=== PATIENT | female | born 1995 | race Caucasian/White ===

== ENCOUNTER 2017-07-31 18:37 | Inpatient (IN) | payer OTHER ==
[~2017-07-31] VITALS: Ht 162.6 cm; Wt 86.2 kg
[2017-07-31 18:46] VITALS: BP 122/81
[2017-07-31 19:13] LABS: HEMATOCRIT 45.2 % (37.0-47.0); HEMOGLOBIN 15.2 gm/dL (12.0-15.0); MCH 31.6 pg (26.0-34.0); MCHC 33.7 g/dL (28.0-37.0); MCV 93.7 fL (80.0-100.0); MPV 7.3 fl. (7.2-11.1); NUCLEATED RBCS 0 /100WBC; PLATELET COUNT* 370 thou/uL (150-400); RBC 4.83 mil/uL (4.20-5.00); RDW-CV 12.8 % (10.5-14.5); WBC 11.7 thou/uL (4.0-11.0)
[2017-07-31 19:26] LABS: CALCIUM 9.3 mg/dL (8.5-10.1); POTASSIUM 3.9 mmol/L (3.5-5.1)
[2017-07-31 19:28] LABS: ABSOLUTE LYMPHOCYTES 0.6 thou/uL (0.8-5.3); ABSOLUTE MONOCYTES 0.4 thou/uL (0.0-1.2); ABSOLUTE NEUTROPHILS 10.8 thou/uL (1.6-8.1); PLATELET ESTIMATE ADEQUATE
[2017-07-31 19:30] LABS: ALBUMIN 4.4 g/dL (3.4-5.0); TOTAL BILIRUBIN 0.5 mg/dL (<0.1-1.0); TOTAL PROTEIN 8.3 g/dL (6.4-8.2)
[2017-07-31 20:27] LABS: URINE BILIRUBIN NEGATIVE (Negative); URINE BLOOD NEGATIVE (Negative); URINE CLARITY CLEAR; URINE COLOR YELLOW; URINE GLUCOSE-RANDOM NEGATIVE (Negative); URINE KETONES NEGATIVE (Negative); URINE LEUKOCYTES-REFLEX NEGATIVE (Negative); URINE NITRITE-REFLEX NEGATIVE (Negative); URINE PROTEIN NEGATIVE (Negative); URINE SPECIFIC GRAVITY <= 1.005 (1.005-1.030); URINE UROBILINOGEN 0.2 E.U./dl (0.2-1.0)
[2017-07-31 20:59] LABS: INFLUENZA A ANTIGEN None Detected (None Detect); INFLUENZA B ANTIGEN None Detected (None Detect)
[2017-07-31 21:54] VITALS: BP 105/59
[2017-07-31 21:54] LABS: APTT 27.1 Seconds (25.0-31.3); INR 1.1; PROTIME 10.9 Seconds (9.20-11.50)
[2017-07-31 21:58] LABS: MAGNESIUM 1.8 mg/dL (1.8-2.4); PHOSPHORUS* 3.4 mg/dL (2.5-4.9)
[2017-07-31 22:35] VITALS: BP 96/48
[2017-08-01 04:05] VITALS: BP 102/45
[2017-08-01 04:35] LABS: HEMATOCRIT 34.2 % (37.0-47.0); MCH 32.3 pg (26.0-34.0); MCHC 34.5 g/dL (28.0-37.0); MCV 93.5 fL (80.0-100.0); MPV 7.4 fl. (7.2-11.1); RBC 3.66 mil/uL (4.20-5.00); RDW-CV 12.6 % (10.5-14.5); WBC 6.5 thou/uL (4.0-11.0)
[2017-08-01 04:52] LABS: HEMOGLOBIN 11.8 gm/dL (12.0-15.0)
[2017-08-01 04:53] LABS: ALBUMIN 2.8 g/dL (3.4-5.0); CREATININE 0.7 mg/dL (0.6-1.3); MAGNESIUM 1.6 mg/dL (1.8-2.4); POTASSIUM 3.3 mmol/L (3.5-5.1); TOTAL BILIRUBIN 0.4 mg/dL (<0.1-1.0); TOTAL PROTEIN 5.8 g/dL (6.4-8.2)
[2017-08-01 04:58] LABS: CALCIUM 7.1 mg/dL (8.5-10.1)
--- NOTE | 2017-08-01 06:51 | NUR ---
ASSUMED CARE OF PT AT 2234. PT IS ALERT AND ORIENTED. VSS. PERRLA. UP AD CARLEEN. SOME PAIN NOTED IN ABDOMAN. NO NAUSEA. PT IS IN SINUS TACHYCARDIA. PT IS SLEEPING QUIETLY IN BED. RESPIRATIONS ARE EVEN AND NONLABORED. WILL CONTINUE TO MONITOR PT.
[2017-08-01 07:30] VITALS: BP 100/53
[2017-08-01 12:00] VITALS: BP 114/62
--- NOTE | 2017-08-01 12:33 | EKG ---
[place] [address] ELECTROCARDIOGRAM REPORT Name: LIZZIEJOSÉ MIGUEL KARAN Room: [place] [address] ADM IN .R.#: [id number] Admission: 07/31/17 Attend Phys: Leonidas Baer, Discharge: Date of : [birth year] Report #: [id number] THIS REPORT FOR: //name// [facility] ED Test Date: 2017-07-31 Test Time: 18:50:16 Pat Name: JOSÉ MIGUEL SAMUEL Department: Room: [facility] Gender: F Wireless Watcher: [place] : 1995 Requested By: Shala Diaz Order Number: [id number] MD: Shravan Vaca Measurements Intervals [place] Rate: 141 P: 40 [place]: 132 QRS: 96 QRSD: 90 T: -4 QT: 283 QTc: 434 Interpretive Statements Sinus tachycardia Borderline right axis deviation Nonspecific T abnormalities, inferior leads No previous ECG available for comparison Electronically Signed On 08-01-2017 12:33:40 ADOPTION WORKER by Shravan Vaca [email or web address] <ELECTRONICALLY SIGNED> By: Shravan Vaca MD, FAC 08/01/17 1233 [id number] 185 Shravan Vaca MD, [facility] /EPI
--- NOTE | 2017-08-01 12:34 | EKG ---
[place] [address] ELECTROCARDIOGRAM REPORT Name: JOSÉ MIGUEL SAMUEL Room: [place] [address] ADM IN M.R.#: [id number] Admission: 07/31/17 Attend Phys: Leonidas Baer, Discharge: Date of : [birth year] Report #: [id number] THIS REPORT FOR: //name// [facility] Test Date: 2017-08-01 Test Time: 08:57:35 Pat Name: JOSÉ MIGUEL SAMUEL Department: Room: [place] [address] Gender: F Human Resources Support Specialist: ABDULAZIZ : 1995 Requested By: Leonidas Baer Order Number: [id number] MD: Shravan Vaca Measurements Intervals [place] Rate: 106 P: 58 RI: 164 QRS: 82 QRSD: 71 T: 15 QT: 363 QTc: 483 Interpretive Statements Sinus tachycardia Borderline T abnormalities, anterior leads Borderline prolonged QT interval No previous ECG available for comparison Electronically Signed On 08-01-2017 12:34:37 HAND TAPPER by Shravan Vaca [email or web address] <ELECTRONICALLY SIGNED> By: Shravan Vaca MD, [facility] 08/01/17 1234 [phone] Shravan Vaca MD, [facility] /EPI
--- NOTE | 2017-08-01 13:25 | NUR ---
RECEIVED PT CARE 0700. PT IS ALERT AND ORIENTED X4. VSS. [address] HEART RATE LOW 100'S. PATIENT DENIES ANY SOA. O2 SAT 98% ON ROOM AIR. COMPLAINS OF CHEST TIGHTNESS AND EPIGASTRIC PAIN. SHE STATES HER ABDOMINAL PAIN IS SUBSIDING AND NOW HER PAIN FEELS LIKE IT IS MOVING UP. DR ESQUIVEL NOTIFIED. NEW ORDERS RECEIVED. DECREASED IVF RATE AND UPDATED THE PATIENT AND HER MOTHER ON THE PLAN OF CARE. PATIENT'S MOTHER UPSET/FRUSTRATED WITH THE PATIENTS CARE AND EXPRESSED HER CONCERNS TO THIS RN. REIFORCED TO PATIENTS MOTHER THAT HER DAUGHTER WAS BEING TAKEN CARE OF. DISCUSSED TEST RESULTS WITH PATIENT AND HER MOTHER. MOTHER VERBALIZED UNDERSTANDING AND STATED HER OTHER DAUGHTERS WERE RN'S. PATIENT HAD EPISODE OF STOOL INCONTINENCE AND HAS C/O DIARRHEA TODAY. PATIENT STATED SHE STARTED ITCHING AT HER IV SITE AFTER IV CIPRO STARTED THIS AM. IV INFUSION STOPPED AND NOTIFIED DR ESQUIVEL. CIPRO ADDED TO PATIENTS ALLERGY LIST.
[2017-08-01 19:50] VITALS: BP 111/62
[2017-08-02] VITALS: BP 101/47
[2017-08-02 04:00] VITALS: BP 106/54
[2017-08-02 04:39] LABS: HEMATOCRIT 37.2 % (37.0-47.0); HEMOGLOBIN 12.6 gm/dL (12.0-15.0); MCH 31.7 pg (26.0-34.0); MCHC 33.7 g/dL (28.0-37.0); MPV 6.9 fl. (7.2-11.1); RBC 3.96 mil/uL (4.20-5.00); RDW-CV 12.5 % (10.5-14.5); WBC 5.5 thou/uL (4.0-11.0)
[2017-08-02 05:06] LABS: ALBUMIN 3.1 g/dL (3.4-5.0); CREATININE 0.6 mg/dL (0.6-1.3); MAGNESIUM 1.9 mg/dL (1.8-2.4); POTASSIUM 3.5 mmol/L (3.5-5.1); TOTAL BILIRUBIN 0.3 mg/dL (<0.1-1.0); TOTAL PROTEIN 6.4 g/dL (6.4-8.2)
--- NOTE | 2017-08-02 05:36 | NUR ---
Pt reports that she has had frequent diarrhea, approx 10-12 stools for the day . States abd pain has improved, but reports being "a little queasy." VSS. SR-ST per monitor, rate upper 80s to low 100s. Mother stayed in pt's room overnight. Will continue to monitor.
[2017-08-02 08:00] VITALS: BP 108/58
--- NOTE | 2017-08-02 08:00 | NUR ---
ASSUMED PT. CARE AND RECEIVED REPORT AT 0730. PT A/OX4, VSS, MONITOR ON TRACING SR. PT. DENIES CURRENT PAIN WITH EXCEPTION OF HEADACHE THIS MORNING. PT. STATES THAT PROTONIX GIVEN BY ZONIA RN HELPED RELIEVE HER CHEST TIGHTNESS SHE HAD THIS MORNING AND SHE HAD 3 LOOSE BM'S THROUGH OUT THE NIGHT. FULL ASSESSMENT COMPLETED, REFER TO CHARTING. ON RA @ 96%. IVF'S CONTINUE AT 125ML/HR. PT. REPORTS DRY COUGH. PT. MOTHER AT BEDSIDE. UPDATED ON PLAN OF CARE AND TODAYS LABS. DISCUSSED POSSIBLE DC TODAY/TOMORROW. PT. ENCOURAGED TO AMBULATE IN HALLS TODAY. CALL LIGHT IN REACH, WILL CONTINUE WITH PLAN OF CARE.
[2017-08-02] MEDS ORDERED: PEPCID20 MG PO (11:30)
[2017-08-02] MEDS ORDERED: BACID CAPLET1 EACH PO (11:30)
[2017-08-02 11:50] VITALS: BP 108/58; BP 112/72
[2017-08-02 12:00] VITALS: BP 112/72
--- NOTE | 2017-08-02 14:35 | NUR ---
DC ORDERS RECEIVED. PT. RECEIVED AFTERNOON DOSE OF ANTIBIOTICS PRIOR TO LEAVING. IV AND MONITOR REMOVED. PT. GIVEN DC INSTRUCTIONS, SCRIPTS, AND CARENOTES. PT. LEFT VIA WHEELCHAIR TO RETURN HOME IN PERSONAL VEHICLE WITH MOTHER, ALL BELONGINGS ACCOUNTED FOR.
== END 2017-08-02 14:12 | disposition home or self-care (01) | DRG 872 ==
LOC: M.ERS 18:37 → M.2W 20:53 → M.TBA-ER 20:53 → M.2W 21:38
PROVIDERS: Physician Assistant; ADMIT Family Medicine
DX: A41.89 Other specified sepsis (principal); E87.2 Acidosis; I44.2 Atrioventricular block, complete; R73.9 Hyperglycemia, unspecified; E86.0 Dehydration; J10.1 Influenza due to other identified influenza virus with other respiratory manifestations; J20.8 Acute bronchitis due to other specified organisms; E86.9 Volume depletion, unspecified; N83.201 Unspecified ovarian cyst, right side; A08.4 Viral intestinal infection, unspecified; Z90.49 Acquired absence of other specified parts of digestive tract; Z82.49 Family history of ischemic heart disease and other diseases of the circulatory system; Z88.8 Allergy status to other drugs, medicaments and biological substances